=== PATIENT | female | born 1960 | race Caucasian/White ===

== ENCOUNTER 2019-04-18 03:10 | Emergency (ER) | payer BC, SELFPAY ==
[2019-04-18 03:06] VITALS: BP 128/84; PULSE 68; RESP 18; TEMP 36.5; O2SAT 97
--- NOTE | 2019-04-18 03:07 | W.ED.GENAD ---
Discharge Plan Disposition Patient Disposition: HOME Condition: Good Discharge Details Chief Complaint: Abd Prob Clinical Impression: Epigastric abdominal pain Primary Care Provider: Sonam,Local ED Provider: Charlie Jimenez Meds and New Rx's Prescriptions: New omeprazole 40 mg capsule,delayed release(DR/EC) 40 mg PO DAILY Qty: 20 RF: 0 sucralfate 100 mg/mL suspension 10 ml PO QID Qty: 420 RF: 0 Continued levothyroxine [Synthroid] 112 mcg Tablet 112 mcg PO DAILY RF: 0 Discharge Instructions Instructions: Epigastric Pain (ED) Additional Instructions: EKG and laboratory studies look good tonight. Suspect pain related to acid type disease. We will place you on omeprazole and sucralfate while visiting here in [place]. Follow-up with your GI specialist when you return home. Return to ED if you develop fever, vomiting, new or worsening pain, chest pain, shortness of breath. Medical Decision Making Patient received fentanyl and Zofran in route by ambulance. She is feeling better here but still has discomfort. Her abdomen is benign. There is no right upper quadrant tenderness. There is no Kim sign. She is not describing chest pain but we will get an EKG and troponin. We will treat here with Pepcid and Carafate and wait for abdominal labs to return. Patient's laboratory studies are unremarkable. Potassium slightly low but otherwise electrolytes, liver function, lipase all normal. CBC normal. Troponin negative. Patient feeling much better after Pepcid and Carafate. Will be visiting [place] for the next couple of weeks. Will give prescription for Carafate and PPI. Has follow-up with GI specialist scheduled for May 08 already when she returns home. Return to ED if she develops fever, vomiting, new or worsening pain, chest pain, shortness of breath. Lab Data Lab results reviewed: Yes I reviewed the patient's lab results. ECG Data Attestation: I personally reviewed and interpreted this ECG (s) as follows: Prior ECG tracings: not available for review Interpretation: Normal sinus rhythm at 65. Normal axis and intervals. Normal ST segments. HPI General Mode of arrival: EMS. Date/Time Provider Initiated Documentation: 04/18/19 03:12. Limitations to Documentation: no limitations. Information obtained by: patient, EMS and RN notes reviewed. HPI Narrative: Patient presents by ambulance for evaluation of epigastric abdominal pain and nausea. She is visiting up here from [place]. Prior to leaving on Saturday, she presented to an urgent care down there with similar complaints. She reports she was given Zofran and told it was a stomach bug. She has continued to have discomfort and nausea. She has not really felt well. Pain got severe again tonight. Describes as pressure and burning with a lot of belching and gas. No actual vomiting. No real chest pain or shortness of breath. Pain does not radiate into the back. She reports having an upper endoscopy a little over a month ago. Related Data Home Medications Medication Instructions Recorded Confirmed levothyroxine [Synthroid] 112 mcg PO DAILY 04/18/19 04/18/19 omeprazole 40 mg PO DAILY #20 cap 04/18/19 sucralfate 10 ml PO QID #420 ml 04/18/19 Previous Rx's Medication Instructions Recorded omeprazole 40 mg PO DAILY #20 cap 04/18/19 sucralfate 10 ml PO QID #420 ml 04/18/19 Allergies Allergy/AdvReac Type Severity Reaction Status Date / Time morphine AdvReac Mild Nausea Unverified 04/18/19 03:09 Review of Systems Review of Systems 06/15 Review of Systems completed and is negative except as stated above in HPI (Systems reviewed: Const, Eyes, ENT, Resp, CV, GI, , MSK, Skin, Neuro) PFSH Medical History Hypothyroid (Chronic) Surgical History H/O: hysterectomy (Chronic) Social History Smoking/Tobacco Use Status: Never Alcohol Intake: never Substance use type: does not use Do you feel safe at home: Yes Do you feel safe in your relationship?: Yes Exam Narrative Exam Narrative: Vitals: Afebrile with normal vital signs and pulse oximetry. Const: WDWN female in NAD. HEENT: NC/AT. Normal facial exam. Eyes: Normal conjunctiva and sclera. Neck: Supple. Trachea midline. Lungs: Normal respiratory effort. Lungs are clear. Cor: RRR without murmur/gallop. Good radial pulses. GI: Soft. NT/ND. No guarding or rebound. No Kim sign. Neuro: A+O x 3. No gross motor or sensory deficits. Ext: No C/C/E. No deformity or tenderness. Skin: Warm and dry without rash.
[2019-04-18 03:15] VITALS: BP 106/59; PULSE 65; RESP 18; O2SAT 95
[2019-04-18] MEDS: FAMOTIDINE 20 MG/50 ML BAG 100 MG IVPB (03:25)
[2019-04-18] MEDS: Sucralfate 1 GM TAB PO (03:25)
[2019-04-18 03:30] VITALS: BP 97/70; PULSE 66; RESP 20; O2SAT 95
[2019-04-18] MEDS: Lactated Ringers 1,000 ML 1000 ML IV (03:30)
[2019-04-18 03:43] LABS: Abs Immature Grans 0.01 k/cumm (0.0-0.09); Absolute Basophil Count 0.01 k/cumm (0.0-0.2); Absolute Eosinophil Count 0.11 k/cumm (0.0-0.7); Absolute Monocyte Count 0.56 k/cumm (0.11-0.7); Absolute Neutrophil Count 4.29 k/cumm (1.2-6.7); Basophils % 0.2; Eosinophils % 1.7; HGB 13.6 g/dL (12.0-15.5); Immature Grans % 0.2; Lymphocytes % 24.3; Mean Corpuscular Hemoglobin 30.2 pg (27.0-33.0); Mean Corpuscular Volume 88.9 fL (80-95); Mean Platelet Volume 11.4 fL (8.0-11.0); Monocytes % 8.5; Neutrophils % 65.1; Platelet Count 233 x1000/uL (130-400); RBC Distribution Width 13.5 % (11.7-14.6); White Blood Cell Count 6.58 k/cumm (4.4-10.8)
[2019-04-18 03:45] VITALS: BP 100/62; PULSE 61; RESP 18; O2SAT 95
[2019-04-18 03:48] LABS: ALT 26 U/L (12-78); AST 16 U/L (15-37); Albumin 3.6 g/dL (3.4-5.0); Alkaline Phosphatase 79 U/L (46-116); Anion Gap 14.7 mmol/L (3-11); BUN 12 mg/dL (7-18); Bilirubin, Total 0.5 mg/dL (0.2-1.0); CO2 21.3 mmol/L (21.0-32.0); CREATININE 0.71 mg/dL (0.55-1.02); Calcium 8.5 mg/dL (8.5-10.1); Chloride 107 mmol/L (98-107); Glucose 121 mg/dL (70-100); Lipase 125 U/L (73-393); Magnesium 1.9 mg/dL (1.8-2.4); Potassium 3.1 mmol/L (3.5-5.1); Sodium 143 mmol/L (136-145); Total Protein 6.8 g/dL (6.4-8.2)
[2019-04-18 03:49] LABS: Troponin I < 0.05 ng/mL (0.00-0.06)
[2019-04-18 04:30] VITALS: BP 101/60; PULSE 60; RESP 18; O2SAT 94
== END 2019-04-18 04:43 | disposition home or self-care (01) ==
PROVIDERS: Emergency Provider Emergency Medicine
DX: R10.13 Epigastric pain (principal); R11.0 Nausea
CPT/HCPCS: 36415; 80053; 83690; 93005; 96361; 96365; 99284; 83735; 84484; 85025; 93010